=== PATIENT | male | born 1965 | race Caucasian/White ===

== ENCOUNTER 2019-09-23 07:51 | Emergency (ER) | payer BC ==
--- NOTE | 2019-09-23 07:59 | ED ---
Shortness of Breath - HPI Summary HPI Summary: This patient is a 54 year old male brought in by EMS presenting to [facility] with a chief complaint of shortness of breath. The patient states he was driving when he started to feel diaphoretic, followed by the SOB, palpitations, and lightheadedness. He pulled over believing it was a panic attack but became concerned after he pulled over and his symptoms would not resolve after some time, so he called EMS. Pt denies any fever, chills, erythema of eyes, sore throat, CP, cough, abdominal pain, N/V, dysuria, hematuria, myalgia, edema, or rash. - History of Current Complaint Time Seen by Provider: 09/23/19 07:52 Hx Obtained From: Patient Onset/Duration: Lasting Minutes Dyspnea At: Rest Alleviating Factors: Spontaneous Resolution Associated Signs & Symptoms: Diaphoresis - Allergy/Home Medications Allergies/Adverse Reactions: Allergies Allergy/AdvReac Type Severity Reaction Status Date / Time No Known Allergies Allergy Verified 09/23/19 08:07 Home Medications: Home Medications Allopurinol TAB* [Zyloprim 300 MG TAB*] 100 mg PO DAILY 09/23/19 [History Confirmed 09/23/19] Escitalopram * [Lexapro *] 10 mg PO DAILY 09/23/19 [History Confirmed 09/23/19] LORazepam TAB(*) [Ativan 0.5 MG TAB (*)] 0.5 mg PO Q8H PRN 09/23/19 [History Confirmed 09/23/19] Simvastatin (NF) [Zocor (NF)] 20 mg PO DAILY 09/23/19 [History Confirmed ] PMH/Surg Hx/FS Hx/Imm Hx Cardiovascular History: Denies: Hx Hypertension Respiratory History: Denies: Hx Asthma - Family History Known Family History: Negative: Cardiac Disease - Social History Alcohol Use: Daily Hx Substance Use: No Review of Systems Positive: Skin Diaphoresis. Negative: Fever, Chills Negative: Erythema Negative: Sore Throat Positive: Palpitations. Negative: Chest Pain Positive: Shortness Of Breath. Negative: Cough Negative: Abdominal Pain, Vomiting, Nausea Negative: dysuria, hematuria Negative: Myalgia, Edema Negative: Rash Neurological: Other - Light-headedness All Other Systems Reviewed And Are Negative: No Physical Exam - Summary Physical Exam Summary: Constitutional: Well-developed, Well-nourished, Alert. (-) Distressed Skin: Warm, Dry HENT: Normocephalic; Atraumatic Eyes: Conjunctiva normal Neck: Musculoskeletal ROM normal neck. (-) JVD, (-) Stridor, (-) Tracheal deviation Cardio: Rhythm regular, rate normal, Heart sounds normal; Intact distal pulses; The pedal pulses are 2+ and symmetric. Radial pulses are 2+ and symmetric. (-) Murmur Pulmonary/Chest wall: Effort normal. (-) Respiratory distress, (-) Wheezes, (-) Rales Abd: Soft, (-) tenderness, (-) Distension, (-) Guarding, (-) Rebound Musculoskeletal: (-) Edema Lymph: (-) Cervical adenopathy Neuro: Alert, Oriented x3 Psych: Mood and affect Normal Triage Information Reviewed: Yes Vital Signs Reviewed: Yes Procedures - Sedation Patient Received Moderate/Deep Sedation with Procedure: No Diagnostics - Laboratory Lab Statement: Any lab studies that have been ordered have been reviewed, and results considered in the medical decision making process. - EKG 0831 Cardiac Rate: NL - 75 BPM EKG Rhythm: Sinus Rhythm Summary of EKG Findings: No STEMI. ED Physician has reviewed and interpreted this report. Re-Evaluation - Re-Evaluation First Eval Re-Evaluation Time: 11:06 Change: Improved Comment: He states he feels great and is ready for discharge. Course/Dx - Course Course Of Treatment: This patient is a 54 year old male brought in by EMS presenting to [facility] with a chief complaint of shortness of breath. Physical exam was unremarkbale for cardiopulmonary problems. Signs and symptoms are most compatible with hyperventilation syndrome. The patient states he feels great upon reeval, has ambulated successfully and feels ready to go home. A plan for discharge was discussed with the patient and he was agreeable with this plan. - Diagnoses Provider Diagnoses: Hyperventilation syndrome, Panic attack Discharge ED - Sign-Out/Discharge Documenting (check all that apply): Patient Departure - Discharge - Discharge Plan Condition: Stable Disposition: HOME Patient Education Materials: Hyperventilation (ED) - Attestation Statements Document Initiated by Scribe: Yes Documenting Scribe: Miah Monroe Provider For Whom Scribe is Documenting (Include Credential): Gonzalez Byrne MD Scribe Attestation: I, Miah Beshara, scribed for Gonzalez Byrne MD on 09/23/19 at 1106. Status of Scribe Document: Ready
[2019-09-23 09:02] LABS: ABS Basophils 0.1 10^3/ul (0-0.2); ABS Lymphocytes 1.7 10^3/ul (1.0-4.8); ABS Monocytes 0.4 10^3/ul (0-0.8); ABS Neutrophils 2.7 10^3/ul (1.5-7.7); Hematocrit 40 % (42-52); Hemoglobin 13.4 g/dL (14.0-18.0); Lymphocyte % 35.8 %; Mean Corpuscular HGB Conc 34 g/dL (31-36); Mean Corpuscular Hemoglobin 30 pg (27-31); Mean Corpuscular Volume 89 fL (80-94); Mean Platelet Volume 9.4 fL (7.4-10.4); Nucleated Red Blood Cells % 0.1; Platelet Count 161 10^3/uL (150-450); Red Blood Count 4.49 10^6 /uL (4.18-5.48); Red Cell Distribution Width 13 % (10-15); White Blood Count 4.9 10^3/uL (3.5-10.8)
[2019-09-23 09:15] LABS: Albumin 4.6 g/dL (3.2-5.2); Calcium 9.1 mg/dL (8.6-10.3); Potassium 4.1 mmol/L (3.5-5.0); Total Bilirubin 0.5 mg/dL (0.2-1.0)
[2019-09-23 09:21] LABS: Albumin/Globulin Ratio 1.7 (1-3); BUN/Creatinine Ratio 19.4 (8-20); EGFR African American 96.8 (>60); Globulin 2.7 g/dL (2-4); Total Protein 7.3 g/dL (6.4-8.9)
[2019-09-23 11:46] VITALS: BP 118/77
== END 2019-09-23 11:44 | disposition home or self-care (01) ==
LOC: ED 07:51
DX: F41.0 Panic disorder [episodic paroxysmal anxiety] (principal); F45.8 Other somatoform disorders; Z79.899 Other long term (current) drug therapy
CPT/HCPCS: 36415; 71045; 80053; 83605; 84484; 85025; 93005; 99285